=== PATIENT | female | born 2000 | race African-American/Black ===

== ENCOUNTER 2024-01-27 13:43 | Emergency (ER) | payer SELFPAY ==
[~2024-01-27] VITALS: Ht 160 cm; Wt 57.0 kg
[2024-01-27 13:58] VITALS: BP 108/63; PULSE 71; RESP 18; TEMP 98; O2SAT 100
[2024-01-27] MEDS: LIDOCAINE HCL/PF 1% 10 MG/ML 5ML VIAL INFIL ONE (15:00)
== END 2024-01-27 16:55 | disposition home or self-care (01) ==
LOC: ER 13:43
DX: S69.81XA Other specified injuries of right wrist, hand and finger(s), initial encounter (principal); X58.XXXA Exposure to other specified factors, initial encounter; Y93.89 Activity, other specified; Y92.89 Other specified places as the place of occurrence of the external cause; Y99.8 Other external cause status
CPT/HCPCS: 81025; 73140; 12001; 99283; J3490; Z7610